=== PATIENT | male | born 1995 | race Caucasian/White ===

== ENCOUNTER 2016-08-11 17:08 | Emergency (ER) | payer MEDICAID ==
[~2016-08-11] VITALS: Ht 188 cm; Wt 108.4 kg
[2016-08-11 17:19] VITALS: BP 137/78; PULSE 82; RESP 16; TEMP 97.6; O2SAT 96
[2016-08-11] MEDS ORDERED: PIPERACILLIN/TAZO 3.38 GM in NS 50 ML IV ONE (17:45)
[2016-08-11] MEDS ORDERED: PIPERACILLIN/TAZOBACTAM 3.375 GM/VIAL (ZOSYN) IV ONE (17:55)
[2016-08-11] MEDS ORDERED: ONDANSETRON HCL 4 MG/2 ML VIAL IVP ONE (18:15)
[2016-08-11 18:35] LABS: BASOPHILS % (AUTO) 0.5 % (0.0-2.0); EOSINOPHILS # (AUTO) 0.1 K/uL (0.0-0.4); EOSINOPHILS % (AUTO) 0.7 % (0.0-4.0); HEMATOCRIT 39.8 % (36-54); HEMOGLOBIN 13.1 g/dL (14.0-18.0); LYMPHOCYTES # (AUTO) 2.1 K/uL (1.0-5.5); LYMPHOCYTES % (AUTO) 22.6 % (20.5-51.5); MEAN CORPUSCULAR HEMOGLOBIN 23 pg (27-31); MEAN CORPUSCULAR HGB CONC 33 % (32-36); MEAN CORPUSCULAR VOLUME 71 fL (79.0-98.0); MONOCYTES # (AUTO) 0.7 K/uL (0.0-1.0); NEUTROPHILS # (AUTO) 6.4 K/uL (1.8-7.7); NEUTROPHILS % (AUTO) 68.2 % (40.0-70.0); PLATELET COUNT (AUTO) 209 K/uL (130-430); RED BLOOD CELL COUNT(AUTO) 5.62 MIL/uL (4.2-6.2); RED CELL DISTRIBUTION WIDTH 15.3 % (9.0-15.0); WHITE BLOOD COUNT (AUTO) 9.3 K/uL (4.8-10.8)
[2016-08-11 18:36] LABS: BILIRUBIN,URINE NEGATIVE (NEGATIVE); BLOOD, URINE NEGATIVE (NEGATIVE); CLARITY/URINE CLEAR (CLEAR); COLOR,URINE YELLOW (YELLOW); GLUCOSE,URINE NEGATIVE (NEGATIVE); KETONES,URINE NEGATIVE (NEGATIVE); LEUKOCYTE ESTERASE ,URINE NEGATIVE (NEGATIVE); NITRITE, URINE NEGATIVE (NEGATIVE); PH,URINE 7.5 (5.0-8.0); PROTEIN URINE NEGATIVE (NEGATIVE); UROBILINOGEN,URINE 0.2 (0.2-1.0)
[2016-08-11 18:55] LABS: ANION GAP 5 (5-15); CALCIUM 8.9 mg/dL (8.4-11.0); CHLORIDE 107 mmol/L (98-107); CREATININE 1.02 mg/dL (0.55-1.30); GLUCOSE 100 mg/dL (70-99); POTASSIUM 3.7 mmol/L (3.5-5.1); SODIUM SERUM 137 mmol/L (136-145); UREA NITROGEN, BLOOD 14 mg/dL (8-21)
[2016-08-11 18:57] LABS: GFR AFRICAN AMERICAN 119 mL/min (>90)
[2016-08-11 18:58] LABS: ALANINE AMINOTRANSFERASE 38 U/L (12-78); ALBUMIN 4.1 g/dL (3.4-4.8); ASPARTATE AMINOTRANSFERASE 21 U/L (10-37); LIPASE 101 U/L (73-393); TOTAL BILIRUBIN 0.4 mg/dL (0.0-1.0); TOTAL PROTEIN, SERUM 7.7 g/dL (6.4-8.3)
[2016-08-11 18:59] LABS: ALCOHOL, BLOOD < 3 mg/dL (<10)
[2016-08-11] MEDS ORDERED: MAGNESIUM CITRATE 300 ML ORAL SOLUTION PO ONE (19:15)
[2016-08-11 19:16] VITALS: BP 137/78; PULSE 82; RESP 16; TEMP 97.6; O2SAT 96
== END 2016-08-11 19:16 | disposition home or self-care (01) ==
LOC: SED 17:08
DX: R10.31 Right lower quadrant pain (principal); R11.2 Nausea with vomiting, unspecified; R19.7 Diarrhea, unspecified; F41.9 Anxiety disorder, unspecified; Z88.2 Allergy status to sulfonamides; Z86.59 Personal history of other mental and behavioral disorders; Z88.1 Allergy status to other antibiotic agents
CPT/HCPCS: 36415; 71010; 74176; 80053; 81003; 83605; 83690; 85025; 85610; 87040; 96365; 96375; 99285; G0482; J2405; J2543

== ENCOUNTER 2016-08-31 23:36 | Emergency (ER) | payer MEDICAID ==
[~2016-08-31] VITALS: Ht 188 cm; Wt 108.9 kg
--- NOTE | 2016-08-31 23:40 | NUR ---
Patient to ER bed 5 to gown for evaluation. Side rails up. Report given to Jayna BOWERS.
--- NOTE | 2016-08-31 23:48 | NUR ---
Patient to ER stating that 2 days ago he fell off his skateboard and injured his right wrist. Pain was on and off but today had a hard time using his right hand. Mild swelling and hematoma to posterior right wrist. No deformity. AAOx4, unlabored breathing, no signs of acute distress.
[2016-08-31 23:53] VITALS: BP 150/63; PULSE 87; RESP 18; TEMP 98.2; O2SAT 94
--- NOTE | 2016-09-01 00:01 | NUR ---
ER MD Peralta at bedside for evaluation
[2016-09-01] MEDS ORDERED: KETOROLAC TROMETHAMINE 60 MG/2 ML VIAL IM ONE (00:30)
--- NOTE | 2016-09-01 00:43 | NUR ---
Right wrist/hand velcrow splint applied to right wrist/hand. +2 pulse noted. Capillary refill <3 seconds. Patient has ability to move non-splinted digits. Has sensation present to affected site. Skin color within normal limits. Applied for pain management control.
[2016-09-01 00:54] VITALS: BP 124/69; PULSE 72; RESP 18; TEMP 98; O2SAT 96
--- NOTE | 2016-09-01 00:54 | NUR ---
Patient given written and verbal discharge instructions and verbalizes understanding. ER MD Peralta discussed with patient the results and treatment provided. Patient in stable condition. ID arm band removed. Rx of motrin given. Patient educated on pain management and to follow up with PMD. Pain Scale 0/10. Opportunity for questions provided and answered.
== END 2016-09-01 00:54 | disposition home or self-care (01) ==
LOC: SED 23:36
DX: S63.501A Unspecified sprain of right wrist, initial encounter (principal); F41.9 Anxiety disorder, unspecified; Z88.2 Allergy status to sulfonamides; Z88.1 Allergy status to other antibiotic agents; V00.131A Fall from skateboard, initial encounter; Y93.51 Activity, roller skating (inline) and skateboarding; Y92.89 Other specified places as the place of occurrence of the external cause; Y99.8 Other external cause status
CPT/HCPCS: 29125; 73110; 96372; 99284; J1885

== ENCOUNTER 2016-10-20 12:58 | Emergency (ER) | payer MEDICAID ==
[~2016-10-20] VITALS: Ht 188 cm; Wt 108.9 kg
[2016-10-20 13:04] VITALS: BP_SYST 129
--- NOTE | 2016-10-20 13:04 | NUR ---
Patient to ER bed 02 to gown for evaluation. Side rails up.
--- NOTE | 2016-10-20 13:07 | NUR ---
Patient presents to the emergency department with complaints of L wrist pain after falling off skateboard 3 days ago, 10 pain, no obvious deformity no bruising. Patient unable to flex or extend or move wrist in any direction at all. pt has not taken any medications at home for the pain. will continue to monitor.
--- NOTE | 2016-10-20 13:08 | NUR ---
ER at bedside examining patient.
[2016-10-20] MEDS ORDERED: IBUPROFEN 800 MG TABLET PO ONE (13:15)
--- NOTE | 2016-10-20 13:45 | NUR ---
l wrist immobilizer placed by NEERAJ romero
--- NOTE | 2016-10-20 13:55 | NUR ---
Pt requesting more pain mediaction, Dr magallanes aware, no further orders at this time
--- NOTE | 2016-10-20 13:56 | NUR ---
Patient given written and verbal discharge instructions and verbalizes understanding. ER MD discussed with patient the results. Given copies of tests performed in ER. Patient in stable condition. ID arm band removed. Rx of motrin given. Patient educated on pain management and to follow up with PMD. Pain Scale 5/10. Opportunity for questions provided and answered.
[2016-10-20 14:00] VITALS: BP_SYST 134
== END 2016-10-20 13:55 | disposition home or self-care (01) ==
LOC: SED 12:58
DX: S63.502A Unspecified sprain of left wrist, initial encounter (principal); F41.9 Anxiety disorder, unspecified; F32.9 Major depressive disorder, single episode, unspecified; Z88.1 Allergy status to other antibiotic agents; V00.131A Fall from skateboard, initial encounter; Y93.51 Activity, roller skating (inline) and skateboarding; Y99.8 Other external cause status; Y92.89 Other specified places as the place of occurrence of the external cause
CPT/HCPCS: 99284

== ENCOUNTER 2016-11-05 02:39 | Emergency (ER) | payer MEDICAID ==
[~2016-11-05] VITALS: Ht 188 cm; Wt 101.2 kg
[2016-11-05 02:50] VITALS: BP_SYST 108
[2016-11-05] MEDS: PROCHLORPERAZINE EDISYLATE 10 MG/2 ML VIAL IVP ONE (03:32)
[2016-11-05] MEDS: PANTOPRAZOLE SODIUM 40 MG TAB PO ONE (03:56)
[2016-11-05] MEDS: MAG HYDROX/AL HYDROX/SIMETH 30 ML, BELLADONNA ALKALOIDS/PHENOBARB 10 ML, LIDOCAINE VISC... PO ONE ×3 (03:56)
[2016-11-05 04:26] LABS: CALCIUM 8.9 mg/dL (8.4-11.0); CREATININE 1.1 mg/dL (0.55-1.30); POTASSIUM 4.1 mmol/L (3.5-5.1)
[2016-11-05 04:27] LABS: BASOPHILS # (AUTO) 0.1 K/uL (0.0-0.2); BASOPHILS % (AUTO) 0.8 % (0.0-2.0); EOSINOPHILS # (AUTO) 0.2 K/uL (0.0-0.4); EOSINOPHILS % (AUTO) 3.1 % (0.0-4.0); LYMPHOCYTES # (AUTO) 2.4 K/uL (1.0-5.5); LYMPHOCYTES % (AUTO) 29.7 % (20.5-51.5); MEAN CORPUSCULAR HEMOGLOBIN 23 pg (27-31); MEAN CORPUSCULAR HGB CONC 33 % (32-36); MEAN CORPUSCULAR VOLUME 72 fL (79.0-98.0); MONOCYTES # (AUTO) 0.7 K/uL (0.0-1.0); NEUTROPHILS # (AUTO) 4.6 K/uL (1.8-7.7); NEUTROPHILS % (AUTO) 57.4 % (40.0-70.0); PLATELET COUNT (AUTO) 230 K/uL (130-430); RED BLOOD CELL COUNT(AUTO) 5.99 MIL/uL (4.2-6.2); RED CELL DISTRIBUTION WIDTH 16.3 % (9.0-15.0)
[2016-11-05 04:30] LABS: ALBUMIN 3.8 g/dL (3.4-4.8); TOTAL BILIRUBIN 0.3 mg/dL (0.0-1.0); TOTAL PROTEIN, SERUM 7.2 g/dL (6.4-8.3)
[2016-11-05] MEDS: LORazepam 2 MG/ML VIAL (FOR ER USE) IM ONE (04:56)
[2016-11-05 05:20] VITALS: BP_SYST 134
== END 2016-11-05 05:20 | disposition home or self-care (01) ==
LOC: SED 02:39
DX: K21.9 Gastro-esophageal reflux disease without esophagitis (principal); F41.9 Anxiety disorder, unspecified; F32.9 Major depressive disorder, single episode, unspecified; Z88.1 Allergy status to other antibiotic agents
CPT/HCPCS: 36415; 80053; 83690; 85025; 96372; 99284; J0780; J2001; J2060

== ENCOUNTER 2016-11-10 01:48 | Emergency (ER) | payer MEDICAID ==
[~2016-11-10] VITALS: Ht 188 cm; Wt 108.9 kg
[2016-11-10 01:48] VITALS: BP_SYST 156
--- NOTE | 2016-11-10 02:00 | NUR ---
Patient to ER bed 4 to gown for evaluation. Side rails up. Report given to Nichole BOWERS.
--- NOTE | 2016-11-10 02:05 | NUR ---
Patient alert and oriented x 4. Came in the ER with a complaint of middle finger pain x 2 days. No other complaints stated. No acute distress or SOB noted.
--- NOTE | 2016-11-10 02:10 | NUR ---
ER Dr. Winters at bedside examining patient.
[2016-11-10 02:41] VITALS: BP_SYST 142
--- NOTE | 2016-11-10 02:41 | NUR ---
Patient given written and verbal discharge instructions and verbalizes understanding. Patient in stable condition. No acute distress or SOB noted upon discharge. ID arm band removed. Rx of Keflex and [place] given. Patient educated on pain management and to follow up with PMD. Pain Scale 1/10. Opportunity for questions provided and answered.
== END 2016-11-10 02:41 | disposition home or self-care (01) ==
LOC: SED 01:48
DX: L03.011 Cellulitis of right finger (principal); F41.9 Anxiety disorder, unspecified; F32.9 Major depressive disorder, single episode, unspecified; Z88.1 Allergy status to other antibiotic agents
CPT/HCPCS: 99283

== ENCOUNTER 2016-11-12 02:52 | Emergency (ER) | payer MEDICAID ==
[~2016-11-12] VITALS: Ht 188 cm; Wt 102.1 kg
[2016-11-12 02:55] VITALS: BP 154/73; PULSE 65; RESP 18; TEMP 98.2; O2SAT 98
--- NOTE | 2016-11-12 03:01 | NUR ---
Placed in room 6 . Placed on multineedle shirrer, blood pressure machine and pulse oximeter. To gown for exam. Side rails up. Report given to ELISSA Julio.
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
--- NOTE | 2016-11-12 03:10 | NUR ---
HOLLIS Trivedi at bedside examining patient.
[2016-11-12 04:04] VITALS: BP 140/72; PULSE 62; RESP 16; TEMP 98.2; O2SAT 98
--- NOTE | 2016-11-12 04:04 | NUR ---
Patient given written and verbal discharge instructions and verbalizes understanding. ER MD discussed with patient the results and treatment provided. Patient in stable condition. ID arm band removed. No Rx given. Patient educated on pain management and to follow up with PMD. Pain Scale 0/10. Opportunity for questions provided and answered.
== END 2016-11-12 04:04 | disposition home or self-care (01) ==
LOC: SED 02:52
DX: M79.644 Pain in right finger(s) (principal); F41.9 Anxiety disorder, unspecified; Z86.59 Personal history of other mental and behavioral disorders; Z88.1 Allergy status to other antibiotic agents; Z88.2 Allergy status to sulfonamides
CPT/HCPCS: 99284